=== PATIENT | male | born 1980 | race Caucasian/White ===

== ENCOUNTER 2018-04-14 10:11 | Emergency (ER) | payer OTHER ==
[~2018-04-14] VITALS: Ht 172.7 cm; Wt 74.8 kg
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
[2018-04-14] MEDS ORDERED: IBUPROFEN 600 MG TABLET PO ONE (10:30)
[2018-04-14] MEDS ORDERED: IBUPROFEN 600 MG TABLET ONE (10:33)
--- NOTE | 2018-04-14 10:33 | NUR ---
MEDICAL CLAIMS EXAMINER AT BEDSIDE.
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
[2018-04-14 11:27] VITALS: BP 122/72
== END 2018-04-14 11:27 | disposition home or self-care (01) ==
LOC: ER 10:11 → EDSEX 10:11 → ER 11:27
DX: S67.190A Crushing injury of right index finger, initial encounter (principal); S60.021A Contusion of right index finger without damage to nail, initial encounter; W23.0XXA Caught, crushed, jammed, or pinched between moving objects, initial encounter; Y93.89 Activity, other specified; Y92.89 Other specified places as the place of occurrence of the external cause; Y99.8 Other external cause status
CPT/HCPCS: 73140; A4663